=== PATIENT | male | born 1975 | race Caucasian/White ===

== ENCOUNTER 2021-05-01 07:23 | Emergency (ER) | payer OTHER, SELFPAY ==
[2021-05-01 07:27] VITALS: BP 159/89; PULSE 73; RESP 16; TEMP 36.4; O2SAT 100
--- NOTE | 2021-05-01 08:16 | ED.WOUNDLAC ---
HPI - Wound/Laceration General Chief Complaint: Wound/Laceration Stated Complaint: head lac Time Seen by Provider: 05/01/21 08:00 Source: RN notes reviewed History of Present Illness HPI narrative: Patient presents emergency department from work for facial laceration. Patient states at work a box of biscuits fell down and one of the cans a biscuit struck him in the forehead causing a laceration he states he had mild bleeding from the wound at the time but no bleeding at this time he states he is unsure of his last tetanus shot he denies any loss of consciousness he denies any headaches vision changes neck pain or any other symptoms Related Data Allergies Allergy/AdvReac Type Severity Reaction Status Date / Time Sulfa (Sulfonamide Allergy Unknown Verified 11/15/18 07:05 Antibiotics) SULFAMETHOXAZOLE (Generic Allergy Unknown Y Uncoded 11/15/18 07:05 Allergy) Review of Systems Review of Systems: Gen.: Denies fevers or chills HEENT: See HPI Musculoskeletal: Denies neck or extremity pain Neuro: Denies numbness, tingling, weakness Skin: See HPI Endo: Denies DM PMFSH Past Medical History Medical History Asthma Family History Family History Father , 66 Asthma Cancer Mother No problems noted. Social History Social History (Updated 05/01/21 @ 08:17 by Jai Gonzalez DO) Smoking status: Never smoker Exam Narrative: APPEARANCE: No acute distress, nontoxic, resting in bed EYES: EOMI HEENT: Normocephalic, TMs clear bilaterally nares patent or mucosa moist 2 cm laceration diagonal just medial of the left eyebrow that is linear and deep with mild venous bleeding no foreign body RESPIRATORY: No respiratory distress MUSCULOSKELETAl: Moves all extremities. No clubbing, cyanosis or edema. NEURO: Awake and alert x 4. Following commands, speech normal, no focal deficits SKIN:: Warm, dry. See HEENT PSYCHIATRIC: Normal affect/mood, Course Course Emergency Course: Discussed with patient results of workup and diagnosis. Discussed need for follow-up with primary care, proper use of medication, and reasons to return to the emergency department. Patient understands and agrees to current treatment plan Vital Signs Vital signs: Vital Signs Temperature 97.6 F 05/01/21 07:27 Pulse Rate 73 05/01/21 07:27 Respiratory Rate 16 05/01/21 07:27 Blood Pressure 159/89 H 05/01/21 07:27 Pulse Oximetry 100 05/01/21 07:27 Temperature 97.6 F 05/01/21 07:27 Pulse Rate 73 05/01/21 07:27 Respiratory Rate 16 05/01/21 07:27 Blood Pressure 159/89 H 05/01/21 07:27 Pulse Oximetry 100 05/01/21 07:27 Procedures Laceration Laceration 1: ====== Skin Level ====== ====== Subcutaneous Layer ====== ====== Muscle Layer ====== ====== Tendon Layer ====== Dressing: Verbal consent was obtained prior to the procedure. The wound was cleaned with Betadine and irrigated with copious amounts of normal saline. Lidocaine 1% with epinephrine was used for anesthesia. Wound was explored is no foreign body seen. The wound was then closed with 3 5-0 nylon in simple interrupted fashion. A sterile dressing was applied following the procedure. Patient tolerated the procedure well Discharge Plan Discharge Clinical Impression: Facial laceration Patient Disposition: Home, Self-Care Condition: Stable Instructions: Antibiotic Form, Laceration (ED) Additional Instructions: Return for increased bleeding from the wound signs of infection or any other symptoms of concern Your stitches need to be removed in 5-7 days and you may go to your physician or return to the emergency department for removal. Prescriptions: No Action fluticasone propionate [Flonase Allergy Relief] 50 mcg/actuation spray,suspension 1 spray intranasal BID Qty: 16 RF: 0 montelukast [
[2021-05-01] MEDS: TETANUS,DIPHTHERIA,AC PERTUSSIS ADULT (0.5 ML) BOOSTRIX IM (08:40)
== END 2021-05-01 09:25 | disposition home or self-care (01) ==
PROVIDERS: Emergency Provider Emergency Medicine; PCP Emergency Medicine
DX: S01.81XA Laceration without foreign body of other part of head, initial encounter (principal); Z23 Encounter for immunization; W20.8XXA Other cause of strike by thrown, projected or falling object, initial encounter
CPT/HCPCS: 12011; 90471; 90715; 99282

== ENCOUNTER → 2021-08-10 01:00 | Outpatient (CLI) | payer OTHER, SELFPAY ==
[2021-08-10 21:03] LABS: SARS-CoV-2 RNA PCR Positive
== END ==
PROVIDERS: PCP Emergency Medicine; Visit Provider Emergency Medicine
DX: U07.1 COVID-19 (principal); R05.9 Cough, unspecified; R06.02 Shortness of breath; R06.2 Wheezing; R51.9 Headache, unspecified
CPT/HCPCS: C9803; U0003; U0005

== ENCOUNTER 2022-04-27 10:04 | Outpatient (CLI) | payer SELFPAY ==
[2022-04-27 10:52] LABS: Alanine Aminotransferase 35 U/L (6-50); Albumin Level 4.4 g/dL (3.5-5.1); Alkaline Phosphatase 46 U/L (38-126); Anion Gap 11 mmol/L (8-16); Aspartate Amino Transferase 34 U/L (17-59); Bilirubin,Total 0.5 mg/dL (0.2-1.3); Blood Urea Nitrogen 14 mg/dL (9-20); Calcium 8.9 mg/dL (8.4-10.2); Carbon Dioxide 25 mmol/L (22-30); Chloride 103 mmol/L (98-107); Cholesterol 190 mg/dL (0-200); Estimated Glomerular Filt Rate > 60; Glucose 91 mg/dL (65-110); HDL Direct 31 mg/dL; Potassium 4.2 mmol/L (3.4-5.0); Sodium 139 mmol/L (137-145); Triglycerides 65 mg/dL (<150)
[2022-04-27 11:03] LABS: LDL Cholesterol Direct 130 mg/dL
[2022-04-30 16:11] LABS: Vitamin D 1,25 (OH)2 Total 17 pg/mL (18-72); Vitamin D2 1,25 (OH)2 <8 pg/mL; Vitamin D3 1,25 (OH)2 17 pg/mL
== END 2022-04-27 10:05 | disposition home or self-care (01) ==
LOC: ANHLAB 10:05
PROVIDERS: PCP Emergency Medicine; Visit Provider Emergency Medicine
DX: R53.83 Other fatigue (principal); E78.5 Hyperlipidemia, unspecified; Z13.220 Encounter for screening for lipoid disorders; E55.9 Vitamin D deficiency, unspecified
CPT/HCPCS: 36415; 80053; 80061; 82652; 84443